=== PATIENT | female | born 1970 | race Caucasian/White ===

== ENCOUNTER 2020-12-23 10:16 | Emergency (ER) | payer SELFPAY ==
[2020-12-23 12:10] VITALS: BP 179/106; PULSE 87; RESP 18; TEMP 36.9; O2SAT 96; BMI 35.5
--- NOTE | 2020-12-23 12:37 | HMH.EDUTC ---
[facility] [place] Clinical Impression: Exposure to COVID-19 virus Disposition: Home, Self-Care Condition on Discharge: Good Instructions: DI for COVID-19 (Suspected or Confirmed ), Coronavirus Disease 2019, Preventing the Spread of Coronavirus Discharge Instructions Additional Instructions: *Monitor Temp, Over the counter Motrin or Tylenol as directed/as needed Tylenol every 4 hours and Motrin every 6 hours (as long as your family doctor has told you that you can take it) for fever or pain. and straight to ER if unable to lower temp less than 101.0 after medication given *Humidifier/Vaporizer Follow up IMMEDIATELY for new or worsening symptoms or no Noticeable improvement over the next 48-72 hours. 911 for difficulty breathing or swallowing You were tested for today for COVID19 your test result should be back in the next 24-48 hours, You was given instructions to check on [facility] for your results if you do not have internet access you may call the [facility] You was given a handout with instructions for Self Quarantine and Self isolation for while you wait on test results and what to do if they are positive If you are positive the Health Dept will be contacting you also Make sure to take your Vitamins Vit. C Vit D and Zinc if you can take them Referrals: Marcio Aguila MD [Primary Care Provider] - As needed Forms: Work/School Release Time of Disposition: 12:58 Medical Decision Making - Mik Inquiry Pt receiving controlled substance: No Mik was queried for this patient: No Vital Signs: 12/23/20 12:10 Temperature 98.5 F Temperature Source Oral Pulse Rate [Right Brachial] 87 Respiratory Rate 18 Blood Pressure [Right Arm] 179/106 H Blood Pressure Mean [Right Arm] 130 Blood Pressure Source [Right Arm] Automatic Cuff Blood Pressure Position [Right Arm] Sitting 02 Sat by Pulse Oximetry 96 Oxygen Delivery Method Room Air [facility] [place] - General Stated complaint: covid test/symptoms Time Seen by Provider: 12/23/20 12:41 Mode of Arrival: Ambulatory Source of Information: Patient Limitations: No Limitations Description of Symptoms (Recalled from Triage Doc. by RN): COVID TEST D/T EXPOSURE. DAD FROM COVID ON WEDNESDAY HEENT Symptoms (Recalled from RN notes): No Resp Symptoms (Recalled from RN notes): No Skin Symptoms (Recalled from RN notes): No MS Symptoms (Recalled from RN notes): No Functional Status (Recalled from RN notes): WNL - History of Present Illness Provider Complaint: Patient states that she has been around father that tested positive for COVID on and over the weekend States that she has been feeling achy and tired and wanted to get tested - Related Data Previous Rx's Medication Instructions Recorded fluconazole 150 mg tablet 150 mg PO Q3D 0 Days #2 tab 03/31/19 sulfamethoxazole 800 1 tab PO BID 3 Days #6 tab 03/31/19 mg-trimethoprim 160 mg tablet Allergies Allergy/AdvReac Type Severity Reaction Status Date / Time latex [LATEX] Allergy Severe S-BLISTERING Unverified 03/31/19 10:16 WELTS codeine [CODEINE] Allergy Mild NA-NAUSEA/V Unverified 03/31/19 10:16 OMITING STERI STRIPS Allergy Severe HIVES, Uncoded 03/31/19 10:16 BLISTERS TEGADERM DRESSING Allergy Severe HIVES, Uncoded 03/31/19 10:16 BLISTERS TELFA Allergy Severe HIVES, Uncoded 03/31/19 10:16 BLISTERS - Worker's Comp Is this a Worker's Comp case?: No [facility] History - Hepatitis A Screen Drug use history?: No High risk sexual behaviors?: No History of sexually transmitted infection?: No Currently employed?: No Childcare worker?: No Do you have indoor plumbing?: Yes Do you have electricity?: Yes Attestation statement:: This patient has been screened for Hepatitis A risk factors. I have reviewed the patient's past medical history: Yes Other Surgeries: Yes: Colon Resection - Social History Smoking Status: Current some day smoker Tobacco Type: cigarettes
[2020-12-23 13:03] VITALS: BP 179/106; PULSE 87; RESP 18; TEMP 36.9; O2SAT 96
== END 2020-12-23 13:10 | disposition home or self-care (01) ==
PROVIDERS: Emergency Provider Nurse Practitioner; PCP Internal Medicine Adolescent Medicine
DX: Z20.822 Contact with and (suspected) exposure to COVID-19 (principal)
CPT/HCPCS: 99202; G0463; U0003

== ENCOUNTER 2023-09-24 16:36 | Emergency (ER) | payer SELFPAY ==
--- NOTE | 2023-09-24 16:38 | EXP.UTC ---
Discharge Plan Disposition Patient Disposition: Home, Self-Care Condition: Good Prescriptions Prescriptions: New amoxicillin-pot clavulanate 875-125 mg Tablet 1 tab PO Q12H Qty: 20 0RF prednisone 20 mg tablet 20 mg PO BID Qty: 10 0RF No Action sulfamethoxazole-trimethoprim [Bactrim DS] 800-160 mg tablet 1 tab PO BID 3 Days Qty: 6 0RF fluconazole 150 mg tablet 150 mg PO Q3D 0 Days Qty: 2 0RF Rx Instructions: Take one now and then in 3 days if symptoms persist Referrals Follow up/Referrals: Marcio Aguila MD [Primary Care Provider] - See instructions Clinical Impressions Clinical Impression: Otitis media Instructions Patient Instructions: DI for Otitis Media (Middle Ear Infection)-Child Discharge ED Provider: Lauren Martinez [facility] General Stated complaint: sore throat Time Seen by Provider: 09/24/23 17:26 History of Present Illness Provider Complaint: Sinus pain and pressure, sore throat, congestion X 3-4 days. No fever. Onset (ago): day(s) (4) Relieving factors: none Exacerbating factors: none Associated symptoms: denies other symptoms Treatments prior to arrival: none Related Data Previous Rx's Medication Instructions Recorded fluconazole 150 mg tablet 150 mg PO Q3D 2 doses #2 tabs 03/31/19 sulfamethoxazole 800 1 tab PO BID 3 days #6 tabs 03/31/19 mg-trimethoprim 160 mg tablet (Bactrim DS) amoxicillin 875 mg-potassium 1 tab PO Q12H #20 tabs 09/24/23 clavulanate 125 mg tablet prednisone 20 mg tablet 20 mg PO BID #10 tabs 09/24/23 Allergies Allergy/AdvReac Type Severity Reaction Status Date / Time latex [LATEX] Allergy Severe S-BLISTERING Verified 08/13/23 11:08 WELTS codeine [CODEINE] Allergy Mild NA-NAUSEA/V Verified 08/13/23 11:08 OMITING STERI STRIPS Allergy Severe HIVES, Uncoded 03/31/19 10:16 BLISTERS TEGADERM DRESSING Allergy Severe HIVES, Uncoded 03/31/19 10:16 BLISTERS TELFA Allergy Severe HIVES, Uncoded 03/31/19 10:16 BLISTERS [facility] Disclaimer: The information contained in this section may have been updated after the patient was seen, as this information can be updated by other users. Social History Smoking Status: Current some day smoker tobacco type: cigarettes alcohol intake: current alcohol intake frequency: a few times a week current occupational status: employed Travel in the last 8 weeks: None ROS Obtained: Yes All systems reviewed & no additional complaints except as documented ENT Ears, Nose, Mouth, and Throat: Reports sinus pain and Reports sore throat Physical Exam General General appearance: alert and in no apparent distress Head Head exam: atraumatic, normocephalic and normal inspection Eye Eye exam: Present normal appearance, PERRL and EOMI ENT ENT exam: Present normal exam, normal oropharynx, mucous membranes moist and normal external ear exam Expanded ENT Exam TM/Canal exam: Bilateral TM: erythema Nose exam: Present sinus tenderness Neck Neck exam: Present normal inspection, full ROM and trachea midline; Absent meningismus or lymphadenopathy Chest Chest inspection: Present normal inspection and symmetric chest wall rise; Absent tenderness Respiratory Respiratory exam: Present normal lung sounds bilaterally; Absent respiratory distress Cardiovascular Cardiovascular exam: Present regular rate and normal rhythm; Absent JVD Abdominal Exam Abdominal exam: Present soft and normal bowel sounds; Absent distention, tenderness or guarding Extremities Exam Extremities exam: Present normal inspection, full ROM and normal capillary refill; Absent calf tenderness Back Exam Back exam: Present normal inspection; Absent tenderness Neurological Exam Neurological exam: Present alert and oriented X3 Psychiatric Psychiatric exam: Present normal affect and normal mood Skin Skin exam: Present warm, dry, intact and normal color Lymphatic Lymphatic Findings: no adenopathy Medical Decision Making Mik Inquiry Pt receiving controlled substance: No Lab Data Lab results reviewed: Yes I reviewed the patient's lab results.
[2023-09-24 17:15] VITALS: BP 170/108; PULSE 78; RESP 20; TEMP 36.9; O2SAT 96; BMI 30.4
[2023-09-24 17:30] LABS: UTC Strep Screen (Rapid) Negative (Negative)
[2023-09-24 17:39] VITALS: BP 170/108; PULSE 78; RESP 20; TEMP 36.9; O2SAT 96
== END 2023-09-24 17:44 | disposition home or self-care (01) ==
PROVIDERS: Emergency Provider Physician Assistant; PCP Internal Medicine Adolescent Medicine
DX: H66.93 Otitis media, unspecified, bilateral (principal); R09.81 Nasal congestion; R07.0 Pain in throat; F17.210 Nicotine dependence, cigarettes, uncomplicated
CPT/HCPCS: 87880; 99212; 99214; G0463